=== PATIENT | male | born 1935 | race Caucasian/White ===

== ENCOUNTER 2022-11-27 07:47 | Day surgery (SDC) | payer MEDICARE ==
[2022-11-27] MEDS ORDERED: BUPIVACAINE 0.5% VIAL IJ ONE (07:48)
[2022-11-27] MEDS ORDERED: Depo-Medrol 40 MG/ML IM ONE (07:48)
[2022-11-27] MEDS ORDERED: DIPRIVAN 200 MG/20 ML IV ONE (09:12)
[2022-11-27] MEDS ORDERED: Versed 2 MG/2 ML Injection ONE (09:15)
--- NOTE | 2022-11-27 10:16 | XRAY ---
Indication: Bilateral SI joint injection. Intraoperative fluoroscopy provided for 18 seconds. 4 digital spot image submitted for interpretation demonstrates posterior needle tip projecting over the expected left and right SI joint. Correlate with intraoperative findings/report.
--- NOTE | 2022-11-27 10:55 | XRAY ---
18 seconds of fluoroscopy was used in surgery for a bilateral sacroiliac joint injection.
[2022-11-27] MEDS ORDERED: Lactated Ringers 1,000 ML IV ONE (13:34)
== END 2022-11-27 09:40 | disposition home or self-care (01) ==
LOC: SDC-PAIN 07:47
PROVIDERS: ATTEND Psychiatry & Neurology Pain Medicine
DX: M46.1 Sacroiliitis, not elsewhere classified (principal); E11.9 Type 2 diabetes mellitus without complications; Z79.899 Other long term (current) drug therapy
CPT/HCPCS: 01992; 27096; 72202; 77002; 82947; 99100; G0260; J1030; J2250; J2704

== ENCOUNTER 2023-02-19 08:04 | Day surgery (SDC) | payer MEDICARE ==
[2023-02-19] MEDS ORDERED: Depo-Medrol 40 MG/ML IM ONE (08:05)
[2023-02-19] MEDS ORDERED: BUPIVACAINE 0.5% VIAL IJ ONE (08:05)
[2023-02-19] MEDS ORDERED: DIPRIVAN 200 MG/20 ML IV ONE (09:45)
[2023-02-19] MEDS ORDERED: Versed 2 MG/2 ML Injection ONE (09:47)
--- NOTE | 2023-02-19 11:35 | XRAY ---
Indication: Bilateral L4-S1 MBB. Intraoperative fluoroscopy provided for 12 seconds. Single digital spot image submitted for interpretation demonstrates posterior needle tips projecting over the expected left and right L4-S1 nerve roots. Correlate with intraoperative findings/report.
--- NOTE | 2023-02-19 11:37 | XRAY ---
12 seconds of fluoroscopy was used in surgery for a bilateral L4-S1 MBB.
[2023-02-19] MEDS ORDERED: Lactated Ringers 1,000 ML IV ONE (11:44)
== END 2023-02-19 10:10 | disposition home or self-care (01) ==
LOC: SDC-PAIN 08:04
PROVIDERS: ATTEND Psychiatry & Neurology Pain Medicine
DX: M47.816 Spondylosis without myelopathy or radiculopathy, lumbar region (principal); E11.9 Type 2 diabetes mellitus without complications; Z79.899 Other long term (current) drug therapy
CPT/HCPCS: 64493; 64494; 72020; 77002; 82947; J1030; J2250; J2704